=== PATIENT | female | born 1995 | race Hispanic/Latino ===

== ENCOUNTER 2016-10-09 07:15 | Inpatient (IN) | payer MEDICAID ==
[~2016-10-09] VITALS: Ht 152.4 cm; Wt 78.0 kg
[2016-10-14] MEDS ORDERED: Lactated Ringer's 1,000 ML IV ONE (05:00)
[2016-10-14] MEDS ORDERED: Carboprost 250 mCg/mL Inj IM PRN ×2 (06:00→10:05)
[2016-10-14] MEDS ORDERED: Methylergonovine 0.2 mg/mL Inj IM PRN ×2 (06:00→10:05)
[2016-10-14] MEDS ORDERED: Lactated Ringer's 1,000 ML IV SCH (06:00)
[2016-10-14] MEDS ORDERED: CeFAZolin Inj 2 GM in IV Premix 1 EACH IV SCH (06:00)
[2016-10-14] MEDS ORDERED: Oxytocin 10 Unit/mL Inj IM PRN ×2 (06:00→10:05)
[2016-10-14] MEDS ORDERED: Hemorrhage Kit, Post Partum XX ONE ×2 (06:00→10:05)
[2016-10-14] MEDS ORDERED: Sodium Citrate-Citric Acid 15 mL Solution PO SCH (06:00)
[2016-10-14 06:36] LABS: Mean Corpuscular Volume 80.5 fL (81-100)
[2016-10-14] MEDS ORDERED: EPHEDrine Sulfate 50 mg/mL Inj IVPUSH PRN (07:35)
[2016-10-14] MEDS ORDERED: fentaNYL-PF 50 mCg/mL 2 mL Inj IVPUSH PRN (07:35)
[2016-10-14] MEDS ORDERED: Atropine 0.4 mg/mL Inj IV PRN (07:35)
--- NOTE | 2016-10-14 07:38 | PCM.HPANE ---
Patient Data Date of Service: Oct 14, 2016 (0735) Surgeon Admitting Provider:Cathleen Amaya MD Attending Provider:Cathleen Amaya MD Primary Care Physician:Holly Inman Other Provider:Rupesh Tam Anesthesia Reason for Visit Repeat REPEAT Ht/WT & BMI Weight (Kilograms): 78 Body Mass Index Allergies Coded Allergies: No Known Allergies (Verified Allergy, Unknown, 04/10/16) Diabetes History Hx Diabetes?: No MRSA MRSA: No Medications No Active Prescriptions or Reported Meds History History of ENT Problems?: No Hx of Heart Problems?: No Cardiovascular History: Denies:: Congestive Heart Failure Hypertension Hx of Respiratory Problem?: No Respiratory History: Denies:: Tuberculosis Hx Neurologic Problems?: No Hx of GI Problems?: No Hx of Problems?: No Female Hx: Positive for:: Currently (breech presentation, prior C sectionx2) Hx Musculoskeletal Problems?: No Hx of Psycho/Social Problems?: No Hx Surgeries?: Yes () Hx Any Other Health Problems?: No Hx Diabetes: No Hx Alcohol Use: NoHx Substance Use: No Smoking Status: Never Smoker Stop/Bang JASBIR Risk Assessment: Low Risk, <3 Yes Risk Assessment Category Category 1A: Patient has history of documented sleep apnea, and HAS NOT received any narcotic, sedative or anesthesia administration during this stay. Category 1B: Patient has history of documented sleep apnea, and HAS received any narcotic , sedative or anesthesia administration during this stay Category 2: Patient has SUSPECTED Obstructive Sleep Apnea, and HAS received any narcotic , sedative or anesthesia administration during this stay. Category 3: Patient has SUSPECTED Obstructive Sleep Apnea and HAS NOT received narcotic, sedative or anesthesia administration during this stay. Category 4: Outpatient in Procedural Areas with known sleep apnea or who screen positive for High Risk via the STOP/BANG questionnaire. Exam Exam General Appearance: Alert, Oriented X3, Cooperative HEENT/AIRWAY: MP 2 Lungs: Clear to Auscultation Heart: Exam Unremarkable Meds/Labs/Diagnostics Admission Meds Current Medications Citric Acid/ Sodium Citrate 30 ml 30 ml PREOP PO Last administered on t 06:31; Start 10/14/16 at 06:00 Lactated Ringer's (Lr) 1,000 ml @ 120 mls/hr Q8H20M ONCE IV Last administered on 10/14/16t 06:35; Start 10/14/16 at 05:00; Stop 10/14/16 at 13:19 Labs Test 10/14/16 05:45 White Blood Count 7.5th/mm3 (3.8-10.1) Red Blood Count 4.30mil/mm3 (3.90-5.20) Hemoglobin 11.2g/dL (12.0-15.6) Hematocrit 34.6% (35.0-46.0) Mean Corpuscular Volume 80.5fL (81-100) Mean Corpuscular Hemoglobin 26.0pg (27.0-35.0) Mean Corpuscular Hemoglobin Concent 32.4% (32.0-37.0) Red Cell Distribution Width 15.0% (12.3-15.4) Platelet Count 255bil/L (150-400) Plan Impression Patient chart reviewed, patient interviewed and anesthestic plan with risks, benefits, and alternatives discussed, and informed consent obtained. NPO Status: >8hrs ASA Physical Status: ASA2 Mod Systemic Disease Anesthetic Plan: SAB Bene/Risks/Altern/Consents: Yes HP Complete Prior to Induction: Yes Juan Jose Nation MD Oct 14, 2016 07:38
[2016-10-14] MEDS ORDERED: Oxytocin 10 Unit/mL Inj ONE (08:00)
[2016-10-14] MEDS ORDERED: Phenylephrine/NS-PF 100 mCg/mL 5 mL Syringe IVPUSH ONE (08:00)
[2016-10-14] MEDS ORDERED: fentaNYL-PF 50 mCg/mL 2 mL Inj ONE (08:38)
[2016-10-14] MEDS ORDERED: Propofol 10,000 mCg/mL 20 mL Inj ONE (08:39)
--- NOTE | 2016-10-14 09:31 | PCM.ANEP1 ---
Post Anesthesia Phase 1 PACU Phase 1 Assessment Date of Service: Oct 14, 2016 (0735) Vital Signs 109/66, 96%, 69, 16, 36.4 Anesthetic Administered: SAB Level of Alertness: Awake, talking BAILEY's with Equal Strength: No Pain: No Nausea or Vomiting: No Lungs: Clear to Auscultation Dermatome Level: T10 (Umbilicus) Summary uneventful SAB Juan Jose Nation MD Oct 14, 2016 09:31
--- NOTE | 2016-10-14 09:32 | PCM.ANEP2 ---
Post Anesthesia Evaluation ASA/CMS Post Anesthesia VS in Patient's Normal Range?: Yes Resp Stable; Airway Patent?: Yes CV Function & Hydration Stable: Yes Mental Status Recovered?: Yes Pain control Satisfactory?: Yes N/V Control Satisfactory?: Yes Juan Jose Nation MD Oct 14, 2016 09:32
[2016-10-14] MEDS: Lactated Ringer's 1,000 ML IV SCH ×2 (10:01→15:44)
[2016-10-14] MEDS ORDERED: Morphine PCA 1 mg/mL 30 mL Inj IV PRN (10:05)
[2016-10-14] MEDS ORDERED: Sodium Chloride LOK Flush 10 mL Syringe IVFLUSH PRN (10:05)
[2016-10-14] MEDS ORDERED: hydrOXYzine Pamoate 25 mg Capsule PO PRN (10:05)
[2016-10-14] MEDS ORDERED: Oxytocin 30 Units/500 mL LR 30 UNITS in IV Premix 1 EACH IV PRN (10:05)
[2016-10-14] MEDS ORDERED: LANOlin HPA 7 Gm Ointment TOPICAL PRN (10:05)
[2016-10-14] MEDS: Acetaminophen IV 1,000 MG in IV Premix 1 EACH IV PRN ×2 (11:03→20:44)
[2016-10-14] MEDS: HYDROmorphone PCA 0.2 mg/mL 30 mL Inj IV PRN ×2 (11:57→19:19)
[2016-10-14] MEDS ORDERED: Polyethylene Glycol (PEG) 17 Gm Powder PO PRN (17:20)
[2016-10-14] MEDS ORDERED: Ondansetron 2 mg/mL 2 mL Inj IVPUSH PRN (17:20)
--- NOTE | 2016-10-14 22:01 | OP ---
[address] [address] OPERATIVE REPORT PATIENT: TRAVON RILEY : 1995 MR#: [id number] ADMIT: 10/14/2016 JOB ID: [id number] DATE OF SURGERY: 10/14/2016 PREOPERATIVE DIAGNOSIS(ES): Intrauterine , 39 weeks. Breech presentation. Bicornuate uterus. History of two prior deliveries. POSTOPERATIVE DIAGNOSIS(ES): Intrauterine , 39 weeks. Breech presentation. Bicornuate uterus. History of two prior deliveries. Status post repeat low transverse section. SURGEON: Bakari Banerjee MD. PROCEDURE: Repeat low transverse section. THROAT CUTTER: Serafin Langley MD. ANESTHESIA: Spinal. ESTIMATED BLOOD LOSS: 500 mL. FLUIDS: 1 L of lactated Ringer. URINE OUTPUT: 300 mL. COMPLICATIONS: None. FINDINGS: Adhesions between the omentum and anterior abdominal wall. Bicornuate uterus. in right cornu of uterus. Very thin lower uterine segment, less than 3 mm in thickness. PROCEDURE INDICATIONS: The patient is a 21-year-old, 3, para 3 now, who has calzada diagnosed with bicornuate uterus and breech presentation at 39 weeks. Patient had two prior deliveries because of breech presentation. The consent was obtained for repeat delivery at 39 weeks. All the risks and benefits of the procedure were explained, risks including but not limited to, bleeding, infection, problems with wound healing and increased recovery period. Also possibility of hysterectomy in rare circumstances. All the questions were answered and consent was obtained. PROCEDURE: The patient was brought to the operating room, where she underwent spinal anesthesia without difficulties. The patient was placed in a dorsal supine position with a leftward tilt. She received preoperative antibiotics. Matthew Hugger was used to maintain adequate core body temperature. Time-out was performed verifying correct patient, correct procedure. Pfannenstiel skin incision was made over the prior Pfannenstiel scar from prior and it was carried down to the underlying layer of rectus muscle fascia using Bovie. The rectus muscle fascia was incised in the midline with the Bovie and the incision was then laterally extended using Pa scissors. The upper aspect of the incision was grasped with two Andrew clamps and the rectus muscle fascia was from the underlying rectus muscle using scalpel and moist laparotomy sponge. In a similar fashion, the lower uterine segment was grasped with two Andrew clamps and the rectus muscle fascia was from the underlying rectus muscle using Pa scissors. The rectus muscles were in the midline with a Yudelka clamp. The scaring in anterior abdominal wall was relieved with a Bovie. The incision was extended down towards the pubic bone. The peritoneum was identified, tented up, and entered sharply. Mild omental adhesions were lysed. Omentum was displaced laterally. The bladder blade was introduced. Using scalpel, lower segment transverse uterine incision was made and extended laterally. The bladder blade was removed. The infant was identified to be in a keyla breech presentation with the back tilted toward the patient's left side. The back was moved up towards the mother's abdomen, and using routine maneuvers for breech delivery, including Lovset maneuver and Pinard maneuver, both legs and arms were delivered atraumatically. This was followed by delivery of the 's head. Baby boy was atraumatically delivered with Apgars 9 at one minute and 9 at five minute and weighed 3919 g. One minute was allowed for delayed cord clamping. The cord was clamped and cut and the was handed off to the waiting nurse. Cord blood was sent. The placenta was removed. The uterus was exteriorized and cleared from all the blood clots and debris with a dry laparotomy sponge. Uterine incision was repaired with two layers of 0 Monocryl. The pelvis was irrigated with warm normal saline. The patient was noted to have normal adnexa and a small 2 cm pedunculated fibroid in anterior aspect of the uterus. The uterus was repositioned back into the abdomen. The rectus muscles were reapproximated with 2-0 Vicryl in interrupted fashion. The rectus muscle fascia was closed with 0-Vicryl. Four interrupted 3-0 Vicryl sutures were applied to subcuticular tissue and Jose Alberto fascia for reapproximation. The skin was closed with jorge luis. Hemostatic dressing was applied. The patient was repositioned into the supine position. She tolerated the procedure well and was transferred to the recovery room in stable condition.
[2016-10-15] MEDS: HYDROmorphone PCA 0.2 mg/mL 30 mL Inj IV PRN (01:45)
[2016-10-15 06:01] LABS: Mean Corpuscular Hemoglobin 25.6 pg (27.0-35.0); Mean Corpuscular Volume 81.1 fL (81-100)
--- NOTE | 2016-10-15 07:25 | PCM.PNOBPP ---
Subjective Date of Service Oct 15, 2016 Subjective 21 female now, s/p scheduled repeat cesarian secondary to breech presentation and Bicornate uterus. Mother and baby doing well, resting comfortably in room. 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, Good Pain Control Gastrointestinal: Good Appetite, No N/V, Passing Flatus Postop Activity: Ambulating in Room Only Group B Strep Results: Negative Rubella: Immune Blood Type: O RH Type: Positive Labs Laboratory Tests 10/15/16 05:50: White Blood Count 10.2, Red Blood Count 3.12, Hemoglobin 8.0, Hematocrit 25.3, Mean Corpuscular Volume 81.1, Mean Corpuscular Hemoglobin 25.6, Mean Corpuscular Hemoglobin Concent 31.6, Red Cell Distribution Width 14.6, Platelet Count 208 Exam Vital Signs Vital Signs BP: 132/56, HR 92, RR 18, temp 37.1 Vital Signs: VS reviewed, stable Exam Abdomen: Uterus is (at the level ), Abdomen appropriately tender Extremities: No edema Lungs: Clear to Auscultation, Normal Air Movement Heart: Exam Unremarkable, Murmur (Soft Bloowing murmur, heard best at 2nd intercostal space.) General: Alert, Oriented X3, Cooperative Surgical Wound : Incision General Appearence: Javon, Intact, Well Approximated, Incision Healing, No Erythemia, No Discharge OB Post Assessment/Plan Assessment 21 female s/p repeat delivery postoperative day #1. Mother and baby doing well. Problems: (1) delivery delivered Plan: Continue supportive care, pain management as needed. Encourage ambulation. Pt Johnson D/C this am. Monitor urine output. Status: Resolved ICD Code: O82 Pain Evaluation: Adequate Pain Control Post plan: Continue routine post care, Discharge home tomorrow Attending Statement The patient was seen and examined together with Dr. Orlando on 10/15/2016 and I agree with the history, exam and plan as outlined in the note above. / MD IOANA Luna GILES A DO Oct 15, 2016 07:25 Serafin Langley MD Oct 15, 2016 16:01
[2016-10-15] MEDS: Lactated Ringer's 1,000 ML IV SCH ×2 (08:08)
[2016-10-15] MEDS: oxyCODONE-Acetamin 5-325 mg Tablet PO PRN ×3 (10:23→21:30)
[2016-10-16] MEDS: oxyCODONE-Acetamin 5-325 mg Tablet PO PRN ×3 (01:30→10:10)
[2016-10-16 06:57] LABS: BASOPHILS % (AUTO) 0.2 % (0-3); EOSINOPHILS % (AUTO) 1.8 % (0-5); MONOCYTES % (AUTO) 6.9 % (4-12); Mean Corpuscular Hemoglobin 25.7 pg (27.0-35.0); Mean Corpuscular Volume 82.4 fL (81-100); NEUTROPHILS % (AUTO) 69.5 % (40-74); Platelet Count 230 bil/L (150-400)
--- NOTE | 2016-10-16 10:49 | PCM.DIOB ---
Obstetrical Disch Instruction Date of Service: Oct 16, 2016 Dates of Hospitalization Date of Hospital Admission Oct 14, 2016 at 04:55 Providers Admitting Physician: Cathleen Amaya MD Primary Care Physician: Holly Inman [facility] Attending Physician: Cathleen Amaya MD Discharge Diagnosis Discharge Diagnosis Repeat section Post Operative diagnosis Intrauterine , 39 weeks. Breech presentation. Bicornuate uterus. History of two prior deliveries. Status post repeat low transverse section. Problems: (1) delivery delivered Plan: Continue supportive care, pain management as needed. Encourage ambulation. Status: Resolved ICD Code: O82 Diet Discharge Diet: No restrictions Activity Discharge Activity-General: Pelvic Rest for 6 weeks, Balance rest and activity , No lifting >15 pounds for 2 weeks Dressing and Incisional Care Dressing Care: Keep dressing dry for Dressing Instructions: Follow-up in clinic for a nurse visit for staple removal Friday. Hygiene: May shower Additional Instructions Discharge Instructions Continue to take your vitamin Please take the iron and vitamin c together for your anemia. Do not take more pain medication (Percocet) than is necessary -- less is better. Percocet pills have Tylenol (acetaminophen) in them at 325mg per pill. Do not take Tylenol in addition to your pain medication but should take one or the other. Both iron and Percocet can give you constipation so you have also been given a prescription for docusate to keep you regular. Be sure to follow up for staple removal on Friday, and in 2 weeks and then again in 6 weeks at [facility]. Pelvic rest for 6 weeks (nothing per vagina including intercourse, tampons) If you have a fever greater than 100.4, please call [facility]. There is always someone director of extension work to talk to. If you have an increase in bleeding, call [facility]. If you have a lot of bleeding suddenly, especially if you have symptoms of dizziness & weakness with it, get emergency help. When you see [facility] in two weeks, you will be informed of the results of all the labs. If you start experiencing extreme depression, especially if you feel that you are a danger to yourself or your family, seek emergency help. You have been through a lot -- BE SURE TO TAKE CARE OF YOURSELF. Follow Up Plan Follow-up Provider (F9): Bakari Banerjee MD Follow-up appointment: Weeks (2,6) SINGH HARRIS DO Oct 16, 2016 10:49
[2016-10-16] MEDS ORDERED: ASCO-294 PO (10:53)
[2016-10-16] MEDS ORDERED: DOCU-41 PO (10:53)
[2016-10-16] MEDS ORDERED: IBUP800T28 PO (10:53)
[2016-10-16] MEDS ORDERED: FERR-83 PO (10:53)
[2016-10-16] MEDS ORDERED: OXYC1TAB24 PO (10:53)
--- NOTE | 2016-10-16 11:08 | PCM.PNOBPP ---
Subjective Date of Service Oct 16, 2016 Subjective 21 female now, s/p scheduled repeat cesarian secondary to breech presentation and Bicornate uterus. Mother and baby doing well, resting comfortably in room. Mother ambulating in room independently. Paaing urine and flatus without difficulty. No BM as of yet. Abdominal pain well controlled with oral pain medication. Reports no N/V, CVP, SOB, EXT numbness or tingling. 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, Good Pain Control Gastrointestinal: Good Appetite, No N/V, Passing Flatus Postop Activity: Ambulating in Room Only Group B Strep Results: Negative Rubella: Immune Blood Type: O RH Type: Positive Labs Laboratory Tests 10/16/16 06:21: White Blood Count 11.3, Red Blood Count 3.07, Hemoglobin 7.9, Hematocrit 25.3, Mean Corpuscular Volume 82.4, Mean Corpuscular Hemoglobin 25.7, Mean Corpuscular Hemoglobin Concent 31.2, Red Cell Distribution Width 14.9, Platelet Count 230, Neutrophils (%) (Auto) 69.5, Lymphocytes (%) (Auto) 21.3, Monocytes ( %) (Auto) 6.9, Eosinophils (%) (Auto) 1.8, Basophils (%) (Auto) 0.2 Exam Vital Signs Vital Signs BP 111/63, HR 92, RR 16, temp 36.7 Vital Signs: VS reviewed, stable Exam Abdomen: Uterus is (2 finger breadths below umbilicus), Abdomen appropriately tender Extremities: No edema Lungs: Clear to Auscultation, Normal Air Movement Heart: Exam Unremarkable, Regular Rate/Rhythm, Murmur (Soft blowing murmur) General: Alert, Oriented X3, Cooperative OB Post Assessment/Plan Assessment 21 female G6 P(3now) s/p repeat Problems: (1) delivery delivered Plan: Continue supportive care, pain management as needed. Discharge home today. Status: Resolved ICD Code: O82 Pain Evaluation: Adequate Pain Control Post plan: Continue routine post care, Discharge home tomorrow RAMAN TRIPLETT DO Oct 16, 2016 11:05
--- NOTE | 2016-10-16 11:28 | PCM.DC.OB ---
Obstetrical Discharge Summary Date of Service Oct 16, 2016 Date of hospital admission Oct 14, 2016 at 04:55 Date of Discharge: Oct 16, 2016 Providers Admitting Physician: Cathleen Amaya MD Primary Care Physician: Holly Inman [facility] Attending Physician: Cathleen Amaya MD Problems: (1) delivery delivered Plan: post op day 2. Mother and baby recovering well. Discharge to home with follow up appointment scheduled. Status: Resolved ICD Code: O82 Brief History and Physical: 21 year old female with history of two previous cesarian deliveries and bicornate uterus presented to the [facility] for scheduled cesarian secondary to footlong breech presentation and prior history of cesarian. Pt was complicated by breech presentation. Per out Pt records Pt is Rubella immune, varicella immune, HBsAG negative, HIV non reactive, RPR non reactive. Blood type O positive, negative antibody screen, GC and Chlamydia negative, GBS negative. BP 111/63, HR 92, RR 16, temp 36.7 Abdomen: Uterus is (2 finger breadths below umbilicus), Abdomen appropriately tender Extremities: No edema Lungs: Clear to Auscultation, Normal Air Movement Heart: Exam Unremarkable, Regular Rate/Rhythm, Murmur (Soft blowing murmur) General: Alert, Oriented X3, Cooperative Hospital Course: Pt presented to [facility] for scheduled cesarian. Pt underwent surgery without complication, post op pt and baby recovered well. Pt able to ambulate, urinate without difficulty and is able to pass flatus. No reported BM. Pt's pain is well controlled with oral pain medication. Ascorbate Calcium (Vitamin C) 500 Mg Tablet 500 MG PO DAILY Take with Iron Prescribed by: SINGH HARRIS DO Docusate Sodium (Colace) 100 Mg Capsule 100 MG PO DAILY PRN PRN For Constipation Prescribed by: SINGH HARRIS DO Ferrous Sulfate (Ferrous Sulfate) 325 Mg Tablet 325 MG PO DAILY Take with Vitamin C Prescribed by: SINGH HARRIS DO Ibuprofen (Ibuprofen) 800 Mg Tablet 800 MG PO Q6H PRN PRN For Pain Prescribed by: SINGH HARRIS DO oxyCODONE-Acetaminophen 5-325 mg (oxyCODONE-Acetaminophen 5-325 mg) 1 Each Tablet 1-2 TAB PO Q4H PRN PRN For Pain Prescribed by: SINGH R HARRIS, DO Discharge Medications: Percocet, Ibuprofen, Colace, vit c, iron Disposition Discharge to home ion stable condition Follow-up plan [facility] on friday10/18/2016, then again in 2weeks and 6 weeks. Discharge Diet: No restrictions Discharge Activity-General: Pelvic Rest for 6 weeks, Try not to overdue, Be up and about, Balance rest and activity, Activity as pain allows, Activity as energy allows, No lifting >15 pounds for 2 weeks Patient instructions Continue to take your vitamin Please take the iron and vitamin c together for your anemia. Do not take more pain medication (Percocet) than is necessary -- less is better. Percocet pills have Tylenol (acetaminophen) in them at 325mg per pill. Do not take Tylenol in addition to your pain medication but should take one or the other. Both iron and Percocet can give you constipation so you have also been given a prescription for docusate to keep you regular. Be sure to follow up for staple removal on Friday, and in 2 weeks and then again in 6 weeks at [facility]. Pelvic rest for 6 weeks (nothing per vagina including intercourse, tampons) If you have a fever greater than 100.4, please call [facility]. There is always someone millstone cleaner to talk to. If you have an increase in bleeding, call [facility]. If you have a lot of bleeding suddenly, especially if you have symptoms of dizziness & weakness with it, get emergency help. When you see [facility] in two weeks, you will be informed of the results of all the labs. If you start experiencing extreme depression, especially if you feel that you are a danger to yourself or your family, seek emergency help. You have been through a lot -- BE SURE TO TAKE CARE OF YOURSELF. RAMAN TRIPLETT DO Oct 16, 2016 10:56
[2016-10-16 12:10] VITALS: BP 111/63; PULSE 92; RESP 16
== END 2016-10-16 13:00 | disposition home or self-care (01) | DRG 766 ==
LOC: FBC 10-14 04:55
PROVIDERS: ADMIT Obstetrics & Gynecology; ATTEND Legal Medicine
PROC: 10D00Z1 Extraction of Products of Conception, Low, Open Approach (ICD-10-PCS; principal; 2016-10-14 07:30)
DX: O32.8XX0 Maternal care for other malpresentation of fetus, not applicable or unspecified (principal); Z3A.39 39 weeks gestation of pregnancy; Z37.0 Single live birth; O34.211 Maternal care for low transverse scar from previous cesarean delivery; O34.03 Maternal care for unspecified congenital malformation of uterus, third trimester; Q51.3 Bicornate uterus